=== PATIENT | female | born 1945 | race Caucasian/White ===

== ENCOUNTER 2024-12-27 23:58 | Emergency (ER) | payer OTHER, SELFPAY ==
[2024-12-28] VITALS (8 sets, daily range): BP systolic 175–201; BP diastolic 76–104; BMI 26.3
[2024-12-28] MEDS: MORPHINE SULFATE 4 MG IV (00:29)
[2024-12-28] MEDS: DILAUDID 0.5 MG IV (01:17)
[2024-12-28] MEDS: ZOFRAN 4 MG IV (01:17)
--- NOTE | 2024-12-28 01:40 | ED.GENMED ---
History of Present Illness
General
Chief Complaint: Fall
Source: patient, family and ambulance crew
Exam Limitations: none
Time Seen by Provider: 12/28/24 00:19
Nursing documentation reviewed up to this point in time: agreed with
History of Present Illness
History of Present Illness:
79-year-old female presents the emergency department after trip and fall. She tripped on her front step and injured her left shoulder and left lower lip. Denies headache. Reports no chest pain or shortness of breath. She was given ketamine prior
to arrival via 911.
Past History
Past History
ED Past Medical History: None
ED Past Surgical History: None
Review of Systems
Review of Systems
Allergies reviewed?: Yes
Other source history: family
All Other Systems: ROS reviewed and negative except as documented in HPI and ROS
Constitutional: Reports no symptoms
EENT: Reports no symptoms
Respiratory: Reports no symptoms
Cardiac: Reports no symptoms
ABD/GI: Reports no symptoms
: Reports no symptoms
Musculoskeletal: Reports joint pain, joint swelling and muscle pain
Skin: Reports no symptoms
Neurological: Reports no symptoms
Endocrine: Reports no symptoms
Hematologic/Lymphatic: Reports no symptoms
Psychiatric: Reports anxiety
Phy Exam
General Physical Exam
General Presentation: moderate distress
General age: appears stated age
General Skin: warm and dry
General Habitus: elderly
General Mental: alert
General Hydration: appears well hydrated
ENT Exam
ENT Exam: EOMI, pharynx normal, neck supple and normocephalic
Eye Exam
Eye Exam: PERRL, cornea clear and conjunctiva normal
Cardiovascular Exam
Cardiovascular Exam: regular rate/rhythm, no edema, no murmur and normal peripheral pulses
Pulmonary Exam
Pulmonary Exam: lungs clear, no respiratory distress, no rales, no crackles, no rhonchi, no stridor, no wheezing and no cough
Gastrointestinal Exam
Gastrointestinal Exam: normal bowel sounds, non tender, soft, no organomegaly, no pulsatile mass and non distended
Neurological Exam
Neurological Exam: alert, oriented x3, no motor deficits and speech normal
Musculoskeletal Exam
Musculoskeletal Exam: no edema and joint swelling (Left shoulder joint swelling. Tenderness to palpation. Very limited range of motion secondary to pain. No obvious deformity noted.)
Skin Exam
Skin Exam: normal color, warm/dry, no rash, no petechia and other (Left lip)
Psychiatric Exam
Psychiatric Exam: normal mood/affect
Course
Orders/Labs/Results
Orders:
Orders
12/28/24 00:08
Shoulder, Left, Trauma CR [CR Shoulder, Trauma - Left] Urgent
Comment:
Reason For Exam: injury pain swelling
12/28/24 00:[address] [CT Head W/o Iv Contrast] Urgent
Comment:
Reason For Exam: head injury
12/28/24 00:20
Morphine Sulfate 4 mg IV NOW STA
12/28/24 01:12
HYDROmorphone [Dilaudid] 0.5 mg IV NOW STA
Ondansetron Injectable [Zofran] 4 mg IV NOW STA
12/28/24 02:16
Acetaminophen 1000MG/100Ml [Ofirmev] 1,000 mg in 100 ml IV ONCE
Acetaminophen IV Indication:: ED Narcotic History-ONCE
12/28/24 03:33
Incentive Spirometry [Rx Incentive Spirometry] [RESP] Urgent
Frequency: q1h while awake
12/28/24 03:48
Oxycodone/Acetaminophen [Percocet 5/325] 1 tablet PO NOW STA
Vital Signs
Initial and Last Documented VS:
Initial Vital Signs
Resp
12
12/28/24 00:04
Last Documented Vital Signs
Pulse Resp BP Pulse Ox
70 18 188/98 99
12/28/24 03:30 12/28/24 03:30 12/28/24 03:30 12/28/24 03:30
*Radiology
Radiology exam reviewed: radiology read reviewed
*Pulse Oximetry
Patient hypoxic: no (94% on room air)
*Critical Care Note
Total Time (30-74mins, 75-104mins- exclusive of procedures): Not Applicable
Update Note
Update Note:
Patient wishes to be discharged home. She states that she still has mild pain. I did offer her admission for pain control and she absolutely refuses. She wants to be discharged. I told her that I would send her prescriptions to a 24-hour
pharmacy. She did not want her to drive 20 minutes extra to pick them up so she wants me to send the prescriptions to her pharmacy that they know is closed at this time. They will follow-up with orthopedics she is in a sling. She appears
a lot more comfortable.
Lip abrasions do not need repair
ED Attending Note
-
Portions of this chart may have been created with voice recognition software.� Occasional wrong word or��sound alike� substitutions may have occurred due to the inherent limitations of voice recognition software.
Discharge Plan
Departure
Patient Disposition: Home (Routine Discharge)
Date of Disposition: 12/28/24
Time of Disposition: 03:33
Patient with high blood pressure during this ER visit?: Yes
Condition: Fair
Discharge Problem:
Fracture of head of humerus, Contusion of lip, Possible rib fracture, Injury of head in adult
Instructions: Head Injury in Adults (DC), Contusion (DC), How to Use a Shoulder Sling ED, Shoulder or upper arm fracture, How to use an incentive spirometer, BLOOD PRESSURE
Prescriptions:
New
oxycodone-acetaminophen [Percocet] 5-325 mg tablet
1 tab PO Q6HPRN PRN (Reason: pain) Qty: 10 0RF
Referrals:
Delano Diallo DO [Family Provider, Family Practice]
Rivera Treviño MD [Active, Orthopedics]
Activity Restrictions/Additional Instructions:
Your prescriptions were sent electronically to the pharmacy that you specified.
Thank You for choosing [facility].
It was a pleasure meeting you and taking part in your care. We hope for your continued healing and wellness.
Please read discharge instructions in their entirety. However, they are for general education and may not describe your exact diagnosis at discharge. Information on your ER visit and medical conditions were discussed with you along with appropriate
follow up information...
If indicated, please take your medications as instructed and indicated on discharge paperwork.
Please schedule a follow up appointment as directed. Call to schedule an appointment
Please return to the emergency department with ANY change in, persisting, or worsening of symptoms. If any of your symptoms do not improve, or persist, or become more severe within 6-12 hours, please return to the emergency department for further
care.
Please return to the emergency department if you develop a headache, neck pain/stiffness, fever greater than 100.4F, chest pain, shortness of breath, persistent nausea, vomiting, slurred speech, difficulty walking, numbness/tingling, weakness, signs
of infection or any other symptoms that are worrisome to you.
If you have any questions or concerns please do not hesitate to call the Hospital at or E-mail me directly at [email or web address]
Interventions
Interventions:
*Risk Screen - Suicide Last Done: 12/28/24 04:02
*General Assessment Last Done: 12/28/24 00:00
*Neglect/Abuse Screening Last Done: 12/28/24 00:00
*ED- Fall Risk Assessment Last Done: 12/28/24 00:00
*ED COVID-19 Vaccine History Last Done: 12/28/24 04:02
*Nursing Disposition Last Done: 12/28/24 04:02
ED-Musculoskeletal Assessment Last Done: 12/28/24 00:59
ED- Neurological Assessment Last Done: 12/28/24 00:59
ED-Skin Assessment Last Done: 12/28/24 00:59
Discharge Date and Time
Discharge Date/Time: 12/28/24 04:03
Print Language: [id number]
[2024-12-28] MEDS: OFIRMEV 100 IV (02:38)
[2024-12-28] MEDS: PERCOCET 5/325 1 TABLET PO (03:51)
== END 2024-12-28 04:03 | disposition home or self-care (01) ==
LOC: EMR 23:58
PROVIDERS: EMERGENCY PHYSICIAN Student in an Organized Health Care Education/Training Program; FAMILY PHYSICIAN Family Medicine
DX: S42.292A Other displaced fracture of upper end of left humerus, initial encounter for closed fracture (principal); S00.531A Contusion of lip, initial encounter; S00.511A Abrasion of lip, initial encounter; W10.8XXA Fall (on) (from) other stairs and steps, initial encounter
CPT/HCPCS: 96374; 96375; 99284; 70450; 73030

== ENCOUNTER 2025-01-02 09:48 | Emergency (ER) | payer OTHER, SELFPAY ==
[2025-01-02] VITALS (21 sets, daily range): BP systolic 74–153; BP diastolic 39–62; BMI 29.1
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
[2025-01-02] MEDS: SUBLIMAZE 50 MCG IV ×2 (10:46→11:20)
[2025-01-02 10:51] LABS: Glucose - Point of Care 135 mg/dl (70-99)
[2025-01-02 11:02] LABS: INR 1.26
[2025-01-02 11:03] LABS: % Basophils 0.2 % (0-2); % Immature Granulocytes 0.6 % (0-0.5); % Lymphocytes 6.2 % (20.5-51.1); % Monocytes 8.1 % (1.7-9.3); % Neutrophils 83.9 % (42.2-75.2); APTT 31.1 Sec (23.4-35.0); Absolute Eosinophils 0.1 10^3/uL (0-0.7); Absolute Immature Granulocytes 0.1 10^3/uL (0-0.05); Absolute Lymphocytes 0.6 10^3/uL (1.2-3.4); Absolute Monocytes 0.8 10^3/uL (0.1-0.6); Absolute Neutrophils 8.6 10^3/uL (1.4-6.5); Hematocrit 21.5 % (37.0-47.0); Hemoglobin 7.2 g/dL (12.0-16.0); Mean Corp Hgb Conc. 33.5 g/dL (33.0-37.0); Mean Corpuscular Hgb 27.8 pg (27.0-31.0); Mean Platelet Volume 10.5 fL (7.4-10.4); Nucleated Red Blood Cells % 0 %; Platelet Count 228 10^3/uL (130-400); Red Blood Cell Count 2.59 10^6/uL (4.20-5.40); Red Cell Dist. Width 15.2 % (11.5-14.5); White Blood Cell Count 10.2 10^3/uL (4.8-10.8)
[2025-01-02 11:11] LABS: Alcohol None Detected
[2025-01-02 12:01] LABS: ALT (SGPT) 26 U/L (0-35); AST (SGOT) 44 U/L (14-36); Albumin 3.5 g/dl (3.5-5.0); Alkaline Phosphatase 54 U/L (38-126); Blood Urea Nitrogen 151 mg/dl (7-17); Calcium 8.9 mg/dl (8.4-10.2); Carbon Dioxide 16 mmol/L (22-30); Chloride 99 mmol/L (98-107); Estimated Creatinine Clearance 9 ml/min; Glucose 123 mg/dl (70-99); Sodium 131 mmol/L (135-145)
[2025-01-02] MEDS: NSS 1000 IV (12:22)
[2025-01-02] MEDS: NOVOLOG vial 4 UNITS SC (12:26)
[2025-01-02 12:28] LABS: Urine Albumin 3+ (Neg - Trace); Urine Bilirubin 2+ (Negative); Urine Character Slightly Cloudy (Clear); Urine Color Yellow; Urine Glucose 1+ (Negative); Urine Ketone Negative (Negative); Urine Leukocyte 3+ (Negative); Urine Nitrite Negative (Negative); Urine Occult Blood 3+ (Negative); Urine Specific Gravity 1.015 (<1.030); Urine Urobilinogen Negative (Neg - 1+)
[2025-01-02] MEDS: DEXTROSE 50% SYRINGE 25 GRAMS IV (12:28)
[2025-01-02] MEDS: CALCIUM GLUCONATE 1000 MG IV (12:31)
[2025-01-02] MEDS: SODIUM BICARBONATE 50 MEQ IV (12:32)
[2025-01-02 12:45] LABS: Urine White Cell >100 /HPF (0-5)
[2025-01-02] MEDS: DILAUDID 0.5 MG IV (12:45)
[2025-01-02 12:50] LABS: Creatine Phosphokinase 185 U/L (30-135)
[2025-01-02 13:32] LABS: Amphetamines Negative (Negative); Barbiturates Negative (Negative); Benzodiazepines Positive (Negative); Buprenorphine Negative (Negative); Cocaine Negative (Negative); Marijuana Positive (Negative); Methadone Negative (Negative); Methamphetamines Negative (Negative); Opiates Positive (Negative); Phencyclidine Negative (Negative); Tricyclic Antidepressants Negative (Negative)
[2025-01-02 14:30] LABS: Fentanyl, Urine Positive (Negative)
== END 2025-01-02 13:40 | disposition short-term general hospital (02) ==
LOC: EMR 09:48
PROVIDERS: Physician Assistant Medical; EMERGENCY PHYSICIAN Student in an Organized Health Care Education/Training Program; FAMILY PHYSICIAN Family Medicine
DX: S22.42XA Multiple fractures of ribs, left side, initial encounter for closed fracture (principal); S27.0XXA Traumatic pneumothorax, initial encounter; S42.202A Unspecified fracture of upper end of left humerus, initial encounter for closed fracture; W19.XXXA Unspecified fall, initial encounter; J45.909 Unspecified asthma, uncomplicated; I10 Essential (primary) hypertension; D64.9 Anemia, unspecified; Z46.82 Encounter for fitting and adjustment of non-vascular catheter; Z90.49 Acquired absence of other specified parts of digestive tract
CPT/HCPCS: 99284; 96374; 96375; 96376; 96372; 96361; 70450; 71045; 71250; 72125; 74176; 80053; 80306; 80307; 81003; 81015; 82077; 82550; 82962; 85025; 85610; 85730; 86850; 86900; 86901; 87077; 87086; 87186; 93005